=== PATIENT | male | born 2000 | race Caucasian/White ===

== ENCOUNTER → 2025-04-18 | Outpatient (CLI) | payer OTHER, SELFPAY ==
--- NOTE | 2025-04-18 10:24 | HMCIMG ---
MR SPINAL CANAL, LUMBAR WO CON HISTORY: Radiculopathy COMPARISON: None TECHNIQUE: MRI of the lumbar spine was performed utilizing multiple pulse sequences in axial , coronal and sagittal plane. Patient was not given contrast through intravenous route. FINDINGS: No abnormal signal intensity is seen of the visualized bony structure. No loss of vertebral height is seen. There is straightening of normal lumbar curvature which may be related to muscle spasm or positioning. No focal disc herniation or neural foraminal stenosis is seen. Mild degenerative disc signal is seen at the L5-S1 level. Visualized distal conus is unremarkable. IMPRESSION: 1. No focal disc herniation or neural foraminal stenosis is seen.
--- NOTE | 2025-04-18 10:29 | HMCIMG ---
MR SPINAL CANAL, THORAC WO CON HISTORY: Radiculopathy COMPARISON: None TECHNIQUE: MRI of the thoracic spine was performed utilizing multiple pulse sequences in axial, coronal and sagittal plane. Patient was not given contrast through intravenous route. FINDINGS: No abnormal signal intensity is seen of the visualized bony structure. No loss of vertebral height is seen. Degenerative disc signals are present at all thoracic spine levels. The thoracic cord is of normal signal intensity without cord compression or impingement. There is no focal disc herniation or neural foraminal stenosis. IMPRESSION: 1. No focal disc herniation or neural foraminal stenosis is seen.
--- NOTE | 2025-04-18 10:33 | HMCIMG ---
MR SPINAL CANAL, CERV WO CON HISTORY: Neck pain COMPARISON: None TECHNIQUE: MRI of the cervical spine was performed utilizing multiple pulse sequences in axial, coronal and sagittal plane. Patient was not given contrast through intravenous route. FINDINGS: No abnormal signal intensity is seen of the visualized bony structure. No loss of vertebral height is seen. There is straightening of normal lordotic cervical curvature which may be related to muscle spasm or positioning. Degenerative disc signals are present at C3-4 and C5-6 levels. Cerebellar tonsils are in normal position. The cervical cord is of normal signal intensity without cord compression or impingement. IMPRESSION: 1. No focal disc herniation or neural foraminal stenosis is seen.
== END | disposition home or self-care (01) ==
LOC: RAH 07:55
PROVIDERS: ATTEND Family Medicine
DX: M51.15 Intervertebral disc disorders with radiculopathy, thoracolumbar region (principal); M53.3 Sacrococcygeal disorders, not elsewhere classified; M50.31 Other cervical disc degeneration, high cervical region; M50.322 Other cervical disc degeneration at C5-C6 level; G89.29 Other chronic pain
CPT/HCPCS: 72141; 72146; 72148